=== PATIENT | male | born 1965 | race Caucasian/White ===

== ENCOUNTER 2019-07-04 20:49 | Inpatient (IN) | payer MEDICAID ==
[~2019-07-04] VITALS: Ht 177.8 cm; Wt 90.3 kg
[~2019-07-04 20:49] MED LIST: ALLO100T PO; ALPR0.5T PO; ATEN-168 PO
[2019-07-04 20:52] VITALS: BP_SYST 136
--- NOTE | 2019-07-04 20:52 | NUR ---
Patient triaged and placed in waiting room. VSS and patient appears in no acute distress at this time. Accompanied by FAM MEMBER, awaiting available bed, and MD notified of need for MSE.
--- NOTE | 2019-07-04 22:01 | NUR ---
Placed in room 3 . Placed on manufacturing machine operator, blood pressure machine and pulse oximeter. To gown for exam. Side rails up. Report given to ODETTE SMITH.
[2019-07-04] MEDS ORDERED: ASPIRIN 325 MG TABLET PO ONE (22:15)
--- NOTE | 2019-07-04 22:27 | NUR ---
ASSESSMENT BY ERMD AT 2210; IV PLACED #20 RIGHT HAND; PREPARATIONS TO ADMIT TO TELE; PATIENT STATES DIZZINESS, OCCIPTIAL HEADACHE AND DYSPNEA FOR THREE DAYS; NO TRAUMA, NO OTHER REMARKABLE S/S
[2019-07-04 22:42] LABS: BASOPHILS % (AUTO) 0.7 % (0.0-2.0); EOSINOPHILS # (AUTO) 0.3 K/uL (0.0-0.4); EOSINOPHILS % (AUTO) 3.7 % (0.0-4.0); HEMATOCRIT 43.4 % (36-54); HEMOGLOBIN 15.1 g/dL (14.0-18.0); LYMPHOCYTES # (AUTO) 1.8 K/uL (1.0-5.5); LYMPHOCYTES % (AUTO) 26.3 % (20.5-51.5); MEAN CORPUSCULAR HEMOGLOBIN 32 pg (27-31); MEAN CORPUSCULAR HGB CONC 35 % (32-36); MEAN CORPUSCULAR VOLUME 93 fL (79.0-98.0); MONOCYTES # (AUTO) 0.8 K/uL (0.0-1.0); NEUTROPHILS % (AUTO) 57.3 % (40.0-70.0); PLATELET COUNT (AUTO) 197 K/uL (130-430); RED BLOOD CELL COUNT(AUTO) 4.66 MIL/uL (4.2-6.2); RED CELL DISTRIBUTION WIDTH 13.2 % (9.0-15.0); WHITE BLOOD COUNT (AUTO) 6.9 K/uL (4.8-10.8)
[2019-07-04] MEDS ORDERED: ASPI-989 PO (22:43)
[2019-07-04] MEDS ORDERED: MILK200C5 PO (22:44)
[2019-07-04] MEDS ORDERED: MONT10TA22 PO (22:44)
[2019-07-04] MEDS ORDERED: DICL75TA5 PO (22:44)
[2019-07-04] MEDS ORDERED: TERA5CAP4 PO (22:44)
[2019-07-04] MEDS ORDERED: ACET-2634 PO (22:44)
[2019-07-04 22:51] LABS: CALCIUM 8.8 mg/dL (8.4-11.0); CREATININE 0.85 mg/dL (0.55-1.30); POTASSIUM 3.9 mmol/L (3.5-5.1)
[2019-07-04 22:57] LABS: ALBUMIN 3.8 g/dL (3.4-4.8); PROTHROMBIN TIME 9.8 SECS (9.5-12.5); TOTAL BILIRUBIN 0.5 mg/dL (0.0-1.0)
--- NOTE | 2019-07-04 23:11 | NUR ---
PATIENT STATES HIS PAIN IS UNCHANGED; PREPARATIONS TO ADMIT PATIENT TO TELE; ORDERS PER DR FERRARA
[2019-07-04] MEDS ORDERED: MORPHINE 4 MG/ML INJ. SYRINGE IVP ONE (23:30)
[2019-07-04] MEDS ORDERED: NITROGLYCERIN 1 INCH (GM) OINT. TP ONE (23:30)
--- NOTE | 2019-07-04 23:37 | NUR ---
REASSESSMENT BY ERMD; PATIENT STATES HIS SYMPTOMS ARE IMPROVED; PATIENT ADMITTED TO TELE AND REPORT GIVEN; PATIENT TRANSPORTED ACLS
--- NOTE | 2019-07-04 23:52 | NUR ---
ADMIT NOTE Received pt from ER to the floor with a diagnosis of CHEST PAIN. Admission process initiated. patient oriented to pain management, safety and call light-teach back done.
[2019-07-04 23:59] VITALS: BP_SYST 113
[2019-07-05] VITALS: BP_SYST 113
--- NOTE | 2019-07-05 | NUR ---
pt.assessed.pt.received as a new admission via the er-dept.pt.had c/o lightheadeness,pain,chest;tolerable.pt.stated chest pain present, tolerable:3/10 pain scale intensity.pt.presents general status stable.respiratory status stable;unlabored@room air:02-sat%=98%. i have apprised the pt.i may provide snacks/beverages w/in the shift.pt.had requested pudding.i have provided the pudding snacks. call light/telephone w/in reach of the pt.
--- NOTE | 2019-07-05 01:37 | NUR ---
Consultation Paged Reason for Consultation: Cardiology Was consult called: Y Person who was notified: Andrei Consulting Physician: Reed Mendez Key Holder Ordering Physician: Harjit Mendez
--- NOTE | 2019-07-05 01:39 | NUR ---
Consultation Paged Reason for Consultation: Neurology Was consult called: Y Person who was notified: Nayana Consulting Physician: Taqueria Perry Membership Advisor Ordering Physician: Harjit Mendez
--- NOTE | 2019-07-05 02:00 | NUR ---
pt.assessed.pt.presents quiescent affect;calm,somnolent.general status stable.respiratory status stable;unlabored. pt.capable to reposition self.call light/telephone w/in reach of the pt.
[2019-07-05 04:00] VITALS: BP_SYST 110
--- NOTE | 2019-07-05 04:00 | NUR ---
pt.assessed.pt.presents quiescent affect;calm,somnolent.general status stable;respiratory status stable;unlabored.pt.capable to reposition self.call light/telephone w/in reach of the pt.
--- NOTE | 2019-07-05 06:17 | NUR ---
pt.assessed.pt.presents quiescent affect;calm,somnolent.general status stable.respiratory status stable.pt stated pain;chest pres,tolerable.no requests for pain medications.i have weighed the pt.2/t history chf.pt.capable to reposition self.call light/ telephone w/in reach of the pt.
--- NOTE | 2019-07-05 07:26 | NUR ---
rn opening note patient is awake and alert laying in bed, no signs of any distress, breathing is equal and non labored. patient has all safety precautions in place. educated special education aide light, call light is with patient. patient has no complaints at this time.
[2019-07-05 07:52] VITALS: BP_SYST 111
--- NOTE | 2019-07-05 09:55 | NUR ---
rn rounding Dr. north at nurse station. patient is awake and alert, sitting up in bed no signs of any distress, breathing is equal and non labored. patient has family member at bedside. patient shows no signs of any distress,breathing is equal and non labored. patient has all safety precautions in place. call light is with him educated to use for assistance.
[2019-07-05] MEDS ORDERED: ONDANSETRON HCL 4 MG/2 ML VIAL IVP PRN (10:00)
[2019-07-05] MEDS ORDERED: ALPRAZolam 0.25 MG TABLET PO PRN (10:00)
[2019-07-05] MEDS ORDERED: HYDROcodone/ACETAMIN 10-325 MG TAB PO PRN (10:00)
[2019-07-05] MEDS ORDERED: ACETAMINOPHEN 500 MG TABLET PO PRN (10:00)
[2019-07-05] MEDS: HYDROcodone/ACETAMIN 5-325 MG TAB (NORCO/ VICODIN) PO PRN (11:55)
--- NOTE | 2019-07-05 11:55 | NUR ---
pain medication patient complains of a headache medicated per order. patient has family at bed side. patient has all safety precautions in place. call light is with patient. no other needs at this time. will continue to monitor.
[2019-07-05 12:27] VITALS: BP_SYST 122
--- NOTE | 2019-07-05 13:57 | NUR ---
Dr. Jose at patients bed side. patient is awake and alert, no signs of any distress, breathing is equal and non labored. patient has family is at bedside. patient and family made aware that personnel manager will be by the hospital to make rounds after 1400. patient has all safety precautions in place. call light is with him educated to use for assistance. no other needs at this time.
[2019-07-05] MEDS: NORMAL SALINE 5 ML DISP.SYRIN IVF SCH ×2 (14:30→21:48)
--- NOTE | 2019-07-05 15:41 | NUR ---
Luisito Freeman at bed side Patient is awake and alert, speaking with md. Patient has family at bedside. no signs of any distress, breathing is equal and non labored.all safety precautions in place. call light is with patient. will continue to monitor.
[2019-07-05 16:43] VITALS: BP_SYST 121
--- NOTE | 2019-07-05 17:13 | NUR ---
Dr. Sam north at nurses station patient was requested to shower. ok to shower per md orders placed. patient is awake and alert no signs of any distress, breathing is equal and non labored. patient has all safety precautions in place. call light is with him educated to use for assistance. no other needs at this time.
--- NOTE | 2019-07-05 17:52 | NUR ---
PAIN MEDICATION PATIENT COMPLAINS OF PAIN IN HIS CHEST,MAINTENANCE SUPERVISOR 2ND SHIFT IS AWARE STATES IT IS NOT CARDIAC RELATED. PATIENT MEDICATED PER ORDER. PATIENT IS SITTING UP IN BED, WATCHING TELEVISION. PATIENT HAS DINNER TRAY IN FRONT OF HIM. PATIENT HAS ALL SAFETY PRECAUTIONS IN PLACE. CALL LIGHT IS WITH HIM EDUCATED TO USE FOR ASSISTANCE. NO OTHER NEEDS AT THIS TIME.
--- NOTE | 2019-07-05 19:45 | NUR ---
A/A/O X4.DENIES ANY DISCOMFORT NOR CP.DENIES SOB @ THIS TIME.FAMILY @ THE BS.INSTRUCTED TO USE CALL LIGHT NEEDED;WITHIN REACH.
[2019-07-05 20:00] VITALS: BP_SYST 136
[2019-07-05] MEDS ORDERED: MONTELUKAST 10 MG TABLET PO SCH (21:00)
[2019-07-05] MEDS ORDERED: TERAZOSIN HCL 5 MG CAPSULE (HYTRIN) PO SCH (21:00)
--- NOTE | 2019-07-05 22:00 | NUR ---
RESTING COMFORTABLY BUT EASILY AROUSABLE.TELE SHOWED SR.
[2019-07-06] VITALS: BP_SYST 119
--- NOTE | 2019-07-06 02:00 | NUR ---
ASLEEP IN NO ACUTE DISTRESS.
--- NOTE | 2019-07-06 04:00 | NUR ---
ASLEEP IN NO ACUTE DISTRESS.CALL LIGHT WITHIN REACH.
--- NOTE | 2019-07-06 06:45 | NUR ---
ENDORSED IN NO ACUTE DISTRESS. SAFETY MAINTAINED.CALL LIGHT WITHIN REACH.
[2019-07-06 07:10] LABS: BASOPHILS % (AUTO) 0.8 % (0.0-2.0); EOSINOPHILS # (AUTO) 0.4 K/uL (0.0-0.4); HEMATOCRIT 42.4 % (36-54); HEMOGLOBIN 14.7 g/dL (14.0-18.0); LYMPHOCYTES # (AUTO) 1.9 K/uL (1.0-5.5); LYMPHOCYTES % (AUTO) 32.5 % (20.5-51.5); MEAN CORPUSCULAR HEMOGLOBIN 32 pg (27-31); MEAN CORPUSCULAR HGB CONC 35 % (32-36); MEAN CORPUSCULAR VOLUME 94 fL (79.0-98.0); MONOCYTES # (AUTO) 0.6 K/uL (0.0-1.0); MONOCYTES % (AUTO) 9.7 % (1.7-9.3); PLATELET COUNT (AUTO) 192 K/uL (130-430); RED BLOOD CELL COUNT(AUTO) 4.53 MIL/uL (4.2-6.2); RED CELL DISTRIBUTION WIDTH 13.3 % (9.0-15.0); WHITE BLOOD COUNT (AUTO) 5.9 K/uL (4.8-10.8)
[2019-07-06] MEDS: NORMAL SALINE 5 ML DISP.SYRIN IVF SCH (07:18)
[2019-07-06 07:47] VITALS: BP_SYST 137
--- NOTE | 2019-07-06 07:53 | NUR ---
OPENING NOTES, PT IN BED, C/O OF SLIGHT PAIN ON THE LEFT UPPER CHEST , 3/10. NO SOB, NO DISTRESS, NO FEVER. PT PROVIDED OJ AND WATER. PT IS AMBULATORY WITH STEADY GAIT. ENCOURAGED TO CALL FOR ASSIST AND PAIN MEDS. WILL CONT TO MONITOR.
[2019-07-06] MEDS ORDERED: DICLOFENAC SODIUM 25 MG TABLET.DR PO SCH (08:00)
[2019-07-06] MEDS: HYDROcodone/ACETAMIN 5-325 MG TAB (NORCO/ VICODIN) PO PRN (08:28)
[2019-07-06 08:47] LABS: ANION GAP 7 (5-15); CHLORIDE 102 mmol/L (98-107); CREATININE 0.63 mg/dL (0.55-1.30); GLUCOSE 97 mg/dL (70-99); PHOSPHORUS 3.5 mg/dL (2.7-4.5); POTASSIUM 3.7 mmol/L (3.5-5.1); SODIUM SERUM 136 mmol/L (136-145); UREA NITROGEN, BLOOD 11 mg/dL (8-21)
[2019-07-06] MEDS ORDERED: ASPIRIN 325 MG TABLET PO SCH (09:00)
[2019-07-06] MEDS ORDERED: ATENOLOL 50 MG TABLET (TENORMIN) PO SCH (09:00)
[2019-07-06] MEDS ORDERED: ALLOPURINOL 300 MG TABLET (ZYLOPRIM) PO SCH (09:00)
[2019-07-06 09:21] LABS: GFR AFRICAN AMERICAN 171 mL/min (>90)
--- NOTE | 2019-07-06 11:08 | NUR ---
PATIENT IN BED, FAMILY AT BEDSIDE NO C/O PAIN, NO SOB. WILL CONT TO MONITOR.
--- NOTE | 2019-07-06 14:00 | NUR ---
PATIENT STABLE, NO C/O PAIN.
[2019-07-06 15:00] VITALS: BP_SYST 121
[2019-07-06 17:56] VITALS: BP_SYST 121
--- NOTE | 2019-07-06 18:35 | NUR ---
D/C Patient Patient given medication reconciliation form and D/C instructions. Exit Care provided. Patient verbalized understanding. MD discussed with patient the results and treatment provided. Ambulatory with steady gait for discharge to home. Patient in stable condition, ID band removed. IV catheter removed, intact and dressing applied, no active bleeding. No Rx given. Patient educated on pain management. All belongings sent with patient.
== END 2019-07-06 18:43 | disposition home or self-care (01) | DRG 203 ==
LOC: SED 20:49 → STU 23:11
PROVIDERS: ADMIT Preventive Medicine Preventive Medicine/Occupational Environmental Medicine; ATTEND Preventive Medicine Preventive Medicine/Occupational Environmental Medicine
DX: M94.0 Chondrocostal junction syndrome [Tietze] (principal); I27.20 Pulmonary hypertension, unspecified; I11.9 Hypertensive heart disease without heart failure; F10.20 Alcohol dependence, uncomplicated; I48.91 Unspecified atrial fibrillation; F41.9 Anxiety disorder, unspecified; M54.12 Radiculopathy, cervical region; R07.89 Other chest pain; R74.0 Nonspecific elevation of levels of transaminase and lactic acid dehydrogenase [LDH]; Z79.899 Other long term (current) drug therapy; Z79.82 Long term (current) use of aspirin; Z88.2 Allergy status to sulfonamides
CPT/HCPCS: 36415; 70450-TC; 71045; 80048; 80053; 83735-TC; 83880; 84100-TC; 84484; 85025; 85379; 85610-TC; 85730-TC; 93005; 93306; 96374; 99291; G0378; J2270

== ENCOUNTER 2019-09-03 12:32 | Emergency (ER) | payer MEDICAID ==
[~2019-09-03] VITALS: Ht 177.8 cm; Wt 86.2 kg
[~2019-09-03 12:32] MED LIST changes: +ACET-2634 PO; +ASPI-989 PO; +DICL75TA5 PO; +MILK200C5 PO; +MONT10TA22 PO; +TERA5CAP4 PO
[2019-09-03] MEDS ORDERED: TETRACAINE HCL/PF 0.5% OPHTHALMIC DROPS 4 ML OP ONE (12:33)
[2019-09-03] MEDS ORDERED: BALANCED SALT IRRIG SOLN 15 ML IO ONE (12:33)
[2019-09-03 12:57] VITALS: BP_SYST 135
[2019-09-03 16:42] VITALS: BP_SYST 119
[2019-09-03] MEDS ORDERED: TOBRAMYCIN SULFATE 0.3% EYE DROPS 5 ML OP ONE (16:45)
[2019-09-03] MEDS ORDERED: TOBRAMYCIN/DEXAMETHASONE Non-Formulary EYE DROPS.SUSP 2.5 ML OP ONE (16:45)
[2019-09-03] MEDS ORDERED: TOBRAMYCIN/DEXAMETHASONE Non-Formulary 3.5 GM EYE OINT. OP ONE (17:00)
== END 2019-09-03 16:42 | disposition home or self-care (01) ==
LOC: SED 12:32
DX: T15.91XA Foreign body on external eye, part unspecified, right eye, initial encounter (principal); Z79.899 Other long term (current) drug therapy; Z79.82 Long term (current) use of aspirin; I10 Essential (primary) hypertension; W22.8XXA Striking against or struck by other objects, initial encounter; Y93.89 Activity, other specified; Y92.89 Other specified places as the place of occurrence of the external cause; Y99.8 Other external cause status
CPT/HCPCS: 99283; 99284

== ENCOUNTER 2020-09-17 13:55 | Emergency (ER) | payer MEDICAID, SELFPAY ==
[~2020-09-17] VITALS: Ht 172.7 cm; Wt 90.7 kg
[2020-09-17 14:02] VITALS: BP_SYST 149
--- NOTE | 2020-09-17 14:05 | NUR ---
Patient to ER bed 6 to gown for evaluation. Side rails up. Report given to Reji SMITH.
--- NOTE | 2020-09-17 14:07 | NUR ---
ER Dr. Anderson at bedside examining patient.
[2020-09-17] MEDS ORDERED: HYDROcodone/ACETAMIN 10-325 MG TAB PO ONE (14:15)
[2020-09-17] MEDS ORDERED: KETOROLAC TROMETHAMINE 60 MG/2 ML VIAL IM ONE (14:15)
--- NOTE | 2020-09-17 14:15 | NUR ---
HERE FOR C/O LT HAND PAIN FOR SEVERAL DAYS. HE RECENTLY REQUIRED AMPUTATION OF LT MIDDLE FINGER RESULTING FROM INJURY. WOUND HAS HEALED AND NO SIGNS OF INFECTION.
--- NOTE | 2020-09-17 14:25 | NUR ---
LABS, X-RAYS COMPLETED. MEDICATED ORDERED, NO DISTRESS. CALM, ND ALERT
[2020-09-17 14:51] LABS: EOSINOPHILS # (AUTO) 0.4 K/uL (0.0-0.4)
--- NOTE | 2020-09-17 15:04 | NUR ---
CALM, ALERT, PAIN TOLERABLE
--- NOTE | 2020-09-17 15:05 | NUR ---
ASSUMED CARE OF PT. PT RESTING QUIETLY AWAITING DISPOSITION.
[2020-09-17 15:12] LABS: C-REACTIVE PROTEIN QUANT < 0.2 mg/dL (0-0.5)
[2020-09-17 15:14] LABS: ANION GAP 8 (5-15); CALCIUM 8.8 mg/dL (8.4-11.0); CHLORIDE 103 mmol/L (98-107); CREATININE 0.89 mg/dL (0.55-1.30); GFR AFRICAN AMERICAN 115 mL/min (>90); GLUCOSE 101 mg/dL (70-99); POTASSIUM 4.3 mmol/L (3.5-5.1); SODIUM SERUM 139 mmol/L (136-145); UREA NITROGEN, BLOOD 16 mg/dL (8-21)
[2020-09-17 15:16] LABS: BASOPHILS % (AUTO) 0.5 % (0.0-2.0); EOSINOPHILS % (AUTO) 4.9 % (0.0-4.0); HEMATOCRIT 47.6 % (36-54); LYMPHOCYTES # (AUTO) 1.9 K/uL (1.0-5.5); LYMPHOCYTES % (AUTO) 26.8 % (20.5-51.5); MEAN CORPUSCULAR HEMOGLOBIN 31 pg (27-31); MEAN CORPUSCULAR HGB CONC 34 % (32-36); MEAN CORPUSCULAR VOLUME 91 fL (79.0-98.0); MONOCYTES # (AUTO) 0.7 K/uL (0.0-1.0); MONOCYTES % (AUTO) 9.9 % (1.7-9.3); NEUTROPHILS # (AUTO) 4.2 K/uL (1.8-7.7); NEUTROPHILS % (AUTO) 57.9 % (40.0-70.0); RED BLOOD CELL COUNT(AUTO) 5.24 MIL/uL (4.2-6.2); WHITE BLOOD COUNT (AUTO) 7.2 K/uL (4.8-10.8)
[2020-09-17 15:17] LABS: INR 0.9 (0.80-1.20); PLATELET COUNT (AUTO) 231 K/uL (130-430); PROTHROMBIN TIME 9.3 SECS (9.5-12.5)
[2020-09-17 15:18] LABS: HEMOGLOBIN 16.2 g/dL (14.0-18.0)
[2020-09-17 15:24] LABS: ALANINE AMINOTRANSFERASE 72 U/L (12-78); ASPARTATE AMINOTRANSFERASE 35 U/L (10-37); TOTAL BILIRUBIN 0.4 mg/dL (0.0-1.0)
[2020-09-17 15:25] LABS: ALBUMIN 4.1 g/dL (3.4-4.8)
[2020-09-17] MEDS ORDERED: HYDR-3919 PO (15:27)
[2020-09-17] MEDS ORDERED: IBUP-1971 PO (15:27)
[2020-09-17 15:44] VITALS: BP_SYST 149
--- NOTE | 2020-09-17 15:44 | NUR ---
Patient given written and verbal discharge instructions and verbalizes understanding. DR. BART KANG MD discussed with patient the results and treatment provided. Patient in stable condition. ID arm band removed. Rx SENT PER MD. Patient educated on pain management and to follow up with PMD. Pain Scale 2/10. Opportunity for questions provided and answered. Medication side effect fact sheet provided.
== END 2020-09-17 15:44 | disposition home or self-care (01) ==
LOC: SED 13:55
DX: M25.532 Pain in left wrist (principal); I10 Essential (primary) hypertension; Z79.899 Other long term (current) drug therapy; Z79.82 Long term (current) use of aspirin; Z88.2 Allergy status to sulfonamides
CPT/HCPCS: 36415; 73130; 80053; 84550; 85025; 85610; 85730; 86140; 96372; 99284; J1885

== ENCOUNTER → 2021-05-29 | Emergency (ER) | payer MEDICAID, SELFPAY ==
[~2021-05-29] MED LIST changes: +HYDR-3919 PO; +IBUP-1971 PO; +PRED20TA PO; +PSEU30TA36 PO; +cefTRIAXone 1 GM VIAL ONE
== END | disposition home or self-care (01) ==
LOC: SED 14:27
DX: U07.1 COVID-19 (principal); J40 Bronchitis, not specified as acute or chronic; I10 Essential (primary) hypertension; I48.91 Unspecified atrial fibrillation; Z88.2 Allergy status to sulfonamides; Z79.899 Other long term (current) drug therapy
CPT/HCPCS: 36415; 71045; 93005; 99285

== ENCOUNTER 2021-10-06 13:33 | Emergency (ER) | payer MEDICAID ==
[~2021-10-06] VITALS: Ht 177.8 cm; Wt 83.9 kg
[~2021-10-06 13:33] MED LIST changes: -cefTRIAXone 1 GM VIAL ONE
[2021-10-06 13:50] VITALS: BP_SYST 160
--- NOTE | 2021-10-06 13:51 | NUR ---
Patient to ER bed 3 to gown for evaluation. Side rails up. Report given to Shantanu SMITH.
--- NOTE | 2021-10-06 14:09 | NUR ---
MD AGUILA AT BEDSIDE ASSESSING PT.
--- NOTE | 2021-10-06 14:13 | NUR ---
PT WANTS HIS CLARENCE BAKER DRAINAGE REMOVED SINCE IT IS NO LONGER DRAINING. PT IS S/P KIDNEY SURGERY ON 09/26/21. PT IS OTHERWISE STABLE AND IN GOOD CONDITION.
[2021-10-06 14:15] LABS: CALCIUM 8.8 mg/dL (8.4-11.0); CREATININE 0.97 mg/dL (0.55-1.30); POTASSIUM 3.7 mmol/L (3.5-5.1)
[2021-10-06 14:21] LABS: ALBUMIN 3.8 g/dL (3.4-4.8); TOTAL BILIRUBIN 0.5 mg/dL (0.0-1.0)
[2021-10-06 14:34] LABS: BASOPHILS # (AUTO) 0.1 K/uL (0.0-0.2); BASOPHILS % (AUTO) 0.7 % (0.0-2.0); EOSINOPHILS # (AUTO) 0.5 K/uL (0.0-0.4); EOSINOPHILS % (AUTO) 3.9 % (0.0-4.0); HEMATOCRIT 37.9 % (36-54); HEMOGLOBIN 12.8 g/dL (14.0-18.0); LYMPHOCYTES # (AUTO) 1.6 K/uL (1.0-5.5); LYMPHOCYTES % (AUTO) 13.9 % (20.5-51.5); MEAN CORPUSCULAR HEMOGLOBIN 30 pg (27-31); MEAN CORPUSCULAR HGB CONC 34 % (32-36); MEAN CORPUSCULAR VOLUME 89 fL (79.0-98.0); MONOCYTES # (AUTO) 0.8 K/uL (0.0-1.0); MONOCYTES % (AUTO) 6.7 % (1.7-9.3); NEUTROPHILS # (AUTO) 8.9 K/uL (1.8-7.7); NEUTROPHILS % (AUTO) 74.8 % (40.0-70.0); PLATELET COUNT (AUTO) 481 K/uL (130-430); RED BLOOD CELL COUNT(AUTO) 4.28 MIL/uL (4.2-6.2); RED CELL DISTRIBUTION WIDTH 13.5 % (9.0-15.0); WHITE BLOOD COUNT (AUTO) 11.9 K/uL (4.8-10.8)
--- NOTE | 2021-10-06 14:45 | NUR ---
MD RAZA REMOVED PAUL DRAINAGE.
[2021-10-06 15:00] LABS: BILIRUBIN,URINE NEGATIVE (NEGATIVE); BLOOD, URINE 2+ (NEGATIVE); CLARITY/URINE CLEAR (CLEAR); COLOR,URINE YELLOW (YELLOW); GLUCOSE,URINE NEGATIVE (NEGATIVE); KETONES,URINE NEGATIVE (NEGATIVE); LEUKOCYTE ESTERASE ,URINE NEGATIVE (NEGATIVE); NITRITE, URINE NEGATIVE (NEGATIVE); PROTEIN URINE TRACE (NEGATIVE); UROBILINOGEN,URINE 0.2 (0.2-1.0)
[2021-10-06 15:06] LABS: BACTERIA,URINE RARE /HPF (None Seen); MUCUS,URINE 1+ /LPF (None Seen); WBC,URINE 0-3 /HPF (0-3)
--- NOTE | 2021-10-06 15:10 | NUR ---
Patient given written and verbal discharge instructions and verbalizes understanding. ER MD discussed with patient the results and treatment provided. Patient in stable condition. ID arm band removed. Patient educated on pain management and to follow up with PMD. Pain Scale [0/10]. Opportunity for questions provided and answered. Medication side effect fact sheet provided.
[2021-10-06 15:16] LABS: BARBITURATE, URINE NEGATIVE (NEG <=200); BENZODIAZEPINE, URINE POSITIVE (NEG <=150); CANNABINOID, URINE NEGATIVE (NEG <=50); COCAINE, URINE NEGATIVE (NEG <=150); METHAMPHETAMINES SCREEN,URINE NEGATIVE (NEG <=500); OPIATE, URINE NEGATIVE (NEG <=100); PHENCYCLIDINE SCREEN,URINE NEGATIVE (NEG <=25); UR TRICYCLIC ANTIDEPRESSANTS NEGATIVE (NEG <=300); URINE AMPHETAMINE NEGATIVE (NEG <=500); URINE METHADONE NEGATIVE (NEG <=200); URINE OXYCODONE SCREEN NEGATIVE (NEG <=100); URINE PROPOXYPHENE SCREEN NEGATIVE (NEG <=300)
[2021-10-06 15:29] VITALS: BP_SYST 135
== END 2021-10-06 15:10 | disposition home or self-care (01) ==
LOC: SED 13:33
DX: Z48.03 Encounter for change or removal of drains (principal); I10 Essential (primary) hypertension; I48.91 Unspecified atrial fibrillation; Z88.2 Allergy status to sulfonamides; Z79.899 Other long term (current) drug therapy
CPT/HCPCS: 36415; 76770; 80053; 80307; 81000; 85025; 99284

== ENCOUNTER 2022-03-22 17:40 | Emergency (ER) | payer MEDICAID ==
[~2022-03-22] VITALS: Ht 177.8 cm; Wt 81.2 kg
[2022-03-22 17:45] VITALS: BP_SYST 122
[2022-03-22 20:40] LABS: HEMOGLOBIN 16.2 g/dL (14.0-18.0); WHITE BLOOD COUNT (AUTO) 8.3 K/uL (4.8-10.8)
[2022-03-22 20:44] LABS: BASOPHILS # (AUTO) 0.1 K/uL (0.0-0.2); EOSINOPHILS # (AUTO) 0.2 K/uL (0.0-0.4); EOSINOPHILS % (AUTO) 2.6 % (0.0-4.0); HEMATOCRIT 46.9 % (36-54); LYMPHOCYTES # (AUTO) 2.4 K/uL (1.0-5.5); MEAN CORPUSCULAR HEMOGLOBIN 32 pg (27-31); MEAN CORPUSCULAR HGB CONC 35 % (32-36); MEAN CORPUSCULAR VOLUME 93 fL (79.0-98.0); MONOCYTES # (AUTO) 0.7 K/uL (0.0-1.0); MONOCYTES % (AUTO) 8.5 % (1.7-9.3); NEUTROPHILS # (AUTO) 4.9 K/uL (1.8-7.7); NEUTROPHILS % (AUTO) 58.9 % (40.0-70.0); PLATELET COUNT (AUTO) 211 K/uL (130-430); RED BLOOD CELL COUNT(AUTO) 5.03 MIL/uL (4.2-6.2); RED CELL DISTRIBUTION WIDTH 14.1 % (9.0-15.0)
[2022-03-22 20:52] LABS: ANION GAP 4 (5-15); CALCIUM 9.3 mg/dL (8.4-11.0); CHLORIDE 103 mmol/L (98-107); CREATININE 1.16 mg/dL (0.55-1.30); GLUCOSE 96 mg/dL (70-99); POTASSIUM 4.1 mmol/L (3.5-5.1); UREA NITROGEN, BLOOD 18 mg/dL (8-21)
[2022-03-22 20:53] LABS: GFR AFRICAN AMERICAN 84 mL/min (>90)
[2022-03-22 20:58] LABS: ALANINE AMINOTRANSFERASE 40 U/L (12-78); ALBUMIN 4.2 g/dL (3.4-4.8); ASPARTATE AMINOTRANSFERASE 30 U/L (10-37); TOTAL BILIRUBIN 0.8 mg/dL (0.0-1.0)
[2022-03-22] MEDS ORDERED: NACL 0.9% 1,000 ML IV ONE (22:00)
[2022-03-22 23:53] VITALS: BP_SYST 122
== END 2022-03-22 22:00 | disposition home or self-care (01) ==
LOC: SED 17:40
DX: R55 Syncope and collapse (principal); R51.9 Headache, unspecified; R42 Dizziness and giddiness; R06.02 Shortness of breath; F10.129 Alcohol abuse with intoxication, unspecified; Z79.899 Other long term (current) drug therapy; Y90.6 Blood alcohol level of 120-199 mg/100 ml
CPT/HCPCS: 36415; 71045; 80053; 84484; 85025; 93005; 99285

== ENCOUNTER 2022-07-22 20:54 | Emergency (ER) | payer MEDICAID ==
[~2022-07-22] VITALS: Ht 175.3 cm; Wt 86.2 kg
--- NOTE | 2022-07-22 21:16 | NUR ---
Patient to ER bed 05 to gown for evaluation. Side rails up.
[2022-07-22 21:27] VITALS: BP_SYST 156
--- NOTE | 2022-07-22 21:45 | NUR ---
PT PRESENTS TO ED WITH CARREON ISSUE, PT STATES HE HAD SURGERY A URO LIFT AT [facility] FOR PROSTATE ISSUE, PT C/O PAIN IN GROIN, FEELING HESITITENCY AND UNABLE TO URINE(FEELING PRESSURE TO URINE) PT STATES PAIN IS BURNING AND IS 8 OUT 10 PAIN. URINE IN CARREON BAG IS MAROON RED, 500ML NOTED, PT STATES HE DRANK OVER 1.5L OF WATER, OTHER LIQUIDS AND ATE. EVEN AND UNLABORED RESPIRATIONS, PT LOOKS IN DISTRESS.
--- NOTE | 2022-07-22 22:11 | NUR ---
DR. ALDRICH AT BEDSIDE WITH PATIENT FOR MSE.
[2022-07-22] MEDS ORDERED: IBUP-1969 PO (22:44)
[2022-07-22] MEDS ORDERED: HYDR-3917 PO ×3 (22:44→22:51)
[2022-07-22] MEDS ORDERED: HYDROcodone/ACETAMIN 10-325 MG TAB PO ONE (22:45)
[2022-07-22 23:24] VITALS: BP_SYST 132
--- NOTE | 2022-07-22 23:24 | NUR ---
Patient given written and verbal discharge instructions and verbalizes understanding. ER DR. ALDRICH discussed with patient the results and treatment provided. Patient in stable condition. ID arm band removed. Rx of motrin and norco given. Patient educated on pain management and to follow up with PMD. Pain Scale 0. Opportunity for questions provided and answered. Medication side effect fact sheet provided.
== END 2022-07-22 23:24 | disposition home or self-care (01) ==
LOC: SED 20:54
DX: R31.9 Hematuria, unspecified (principal); Z46.6 Encounter for fitting and adjustment of urinary device; I10 Essential (primary) hypertension; Z88.2 Allergy status to sulfonamides; Z79.899 Other long term (current) drug therapy
CPT/HCPCS: 99283